=== PATIENT | female | born 1985 | race Caucasian/White ===

== ENCOUNTER → 2021-01-03 | Outpatient (CLI) | payer OTHER ==
[2021-01-03 13:13] LABS: CREATININE 0.8 mg/dL (0.6-1.3)
== END ==
LOC: M.MRI 12-28 10:55 → M.LAB 12:30
PROVIDERS: ATTEND Psychiatry & Neurology Neuromuscular Medicine
DX: M54.10 Radiculopathy, site unspecified (principal); R51.9 Headache, unspecified; Z87.820 Personal history of traumatic brain injury; V89.2XXA Person injured in unspecified motor-vehicle accident, traffic, initial encounter; Y93.89 Activity, other specified; Y92.89 Other specified places as the place of occurrence of the external cause; Y99.8 Other external cause status